=== PATIENT | male | born 1970 | race Two or more races ===

== ENCOUNTER 2023-06-23 15:28 | Emergency (ER) | payer MEDICAID, OTHER ==
[~2023-06-23] VITALS: Ht 188 cm; Wt 78.3 kg
[2023-06-23 16:45] VITALS: BP 142/86; TEMP 98.6
[2023-06-23 16:46] VITALS: PULSE 109; RESP 18; O2SAT 98
[2023-06-23] MEDS ORDERED: predniSONE 20 MG TAB PO ONE (17:00)
[2023-06-23] MEDS ORDERED: IBUPROFEN 600 MG TAB PO ONE (17:00)
[2023-06-23] MEDS ORDERED: IBUP1TAB5 PO (17:06)
[2023-06-23] MEDS ORDERED: PRED20TA2 PO (17:06)
== END 2023-06-23 17:22 | disposition home or self-care (01) ==
LOC: ER 15:28
DX: M79.674 Pain in right toe(s) (principal); I10 Essential (primary) hypertension; F17.210 Nicotine dependence, cigarettes, uncomplicated; Z79.1 Long term (current) use of non-steroidal anti-inflammatories (NSAID); Z79.899 Other long term (current) drug therapy
CPT/HCPCS: 73630; 99283; J7512